=== PATIENT | female | born 1960 | race African-American/Black ===

== ENCOUNTER 2021-05-28 16:06 | Emergency (ER) | payer OTHER ==
[~2021-05-28] VITALS: Ht 157.5 cm; Wt 139.6 kg
[~2021-05-28 16:06] MED LIST: ALBU8.5H8 IH; ALBUTEROL MDI IH; AMLO10TA55 PO; ATEN100T92 PO; BECL8.7A5 IH; BENZ-70 PO; DIPH25CA85 PO; FURO40 PO; GUAI600T30 PO; LOSA25TA21 PO; METF-1211 PO; [UNRECOGNIZED DRUG - OTHER] IH
[2021-05-28] MEDS ORDERED: ACETAMINOPHEN/CODEINE 300-30 MG TABLET PO ONE (17:15)
[2021-05-28 17:29] LABS: BASOPHILS % (AUTO) 0.8 % (0.0-2.0); EOSINOPHILS % (AUTO) 10.1 % (1.0-6.0); HEMATOCRIT 38.6 % (36-46); HEMOGLOBIN 12.5 g/dL (12.0-16.0); LYMPHOCYTES # (AUTO) 1.9 K/uL (1.0-4.8); LYMPHOCYTES % (AUTO) 29.5 % (22.0-44.0); MEAN CORPUSCULAR HEMOGLOBIN 25.2 pg (26.0-34.0); MEAN CORPUSCULAR HGB CONC 32.3 G/dL (31.0-37.0); MEAN CORPUSCULAR VOLUME 78 fL (80-100); MONOCYTES # (AUTO) 0.6 K/uL (0.1-1.0); MONOCYTES % (AUTO) 8.7 % (2.0-9.0); NEUTROPHILS # (AUTO) 3.3 K/uL (1.8-7.7); NEUTROPHILS % (AUTO) 50.9 % (40.0-70.0); PLATELET COUNT (AUTO) 219 K/uL (150-450); RED BLOOD CELL COUNT(AUTO) 4.94 MIL/uL (4.00-5.20); RED CELL DISTRIBUTION WIDTH 15.2 % (11.5-14.5)
[2021-05-28 17:38] LABS: ANION GAP 9 mmol/L (8-16); CALCIUM, TOTAL 10.1 mg/dL (8.8-10.5); CARBON DIOXIDE 31 mmol/L (22-29); CHLORIDE 104 mmol/L (98-107); CREATININE 0.99 mg/dL (0.60-1.30); GLOMERULAR FILTR. RATE CALC > 60 mL/min (>60); GLUCOSE,RANDOM 134 mg/dL (70-110); POTASSIUM 4.3 mmol/L (3.5-5.1); SODIUM SERUM 144 mmol/L (136-145); UREA NITROGEN, BLOOD 13 mg/dL (7-18)
[2021-05-28 17:43] LABS: ALANINE AMINOTRANSFERASE 26 U/L (12-78); ALBUMIN 3.9 g/dL (3.4-5.0); ALKALINE PHOSPHATASE 59 U/L (46-116); ASPARTATE AMINOTRANSFERASE 19 U/L (15-37); BILIRUBIN,TOTAL 0.3 mg/dL (0.1-1.0); TOTAL PROTEIN, SERUM 7.8 g/dL (6.4-8.2)
[2021-05-28 18:08] LABS: B-TYPE NATRIURETIC PEPTIDE 7 pg/mL (0-100)
[2021-05-28] MEDS ORDERED: KETOROLAC TROMETHAMINE 30 MG/ML VIAL IM ONE (19:15)
[2021-05-28 19:38] VITALS: BP 180/86
== END 2021-05-28 19:35 | disposition home or self-care (01) ==
LOC: EMS 16:09
DX: G89.29 Other chronic pain (principal); M25.561 Pain in right knee; M25.562 Pain in left knee; R60.0 Localized edema; I10 Essential (primary) hypertension; E11.9 Type 2 diabetes mellitus without complications; J45.909 Unspecified asthma, uncomplicated; Z79.84 Long term (current) use of oral hypoglycemic drugs; Z79.899 Other long term (current) drug therapy
CPT/HCPCS: 80053; 83880; 85025; 93970; 99284

== ENCOUNTER 2023-02-05 17:12 | Emergency (ER) | payer OTHER, SELFPAY ==
[~2023-02-05] VITALS: Ht 157.5 cm; Wt 123.6 kg
[~2023-02-05 17:12] MED LIST changes: +BENZ-227 PO; -BENZ-70 PO; -GUAI600T30 PO; +GUAI600T31 PO; +LOSA-381 PO; -LOSA25TA21 PO
[2023-02-05 17:18] VITALS: TEMP 98.5
[2023-02-05] MEDS ORDERED: CLON-353 PO (17:22)
[2023-02-05] MEDS ORDERED: FERR325T23 PO (17:22)
[2023-02-05] MEDS ORDERED: NIFE-79 PO (17:22)
[2023-02-05] MEDS ORDERED: SIMV-46 PO (17:22)
[2023-02-05] MEDS ORDERED: HYDR-4069 PO (17:22)
[2023-02-05] MEDS ORDERED: LISI-892 PO (17:22)
[2023-02-05] MEDS ORDERED: ALBU18HF12 PO (17:22)
[2023-02-05] MEDS ORDERED: NIFE10CA50 PO (17:22)
[2023-02-05] MEDS ORDERED: METF-446 PO (17:22)
[2023-02-05 17:31] LABS: GLUCOMETER DEV NAME(LOC) ERT.5; GLUCOSE,POINT OF CARE 140 MG/DL (70-110)
[2023-02-05] MEDS ORDERED: ONDANSETRON HCL 4 MG TABLET PO ONE (18:00)
[2023-02-05] MEDS ORDERED: MECLIZINE HCL 25 MG TABLET PO ONE (18:00)
[2023-02-05 18:55] LABS: APPEARANCE,URINE CLEAR (CLEAR); BILIRUBIN,URINE NEGATIVE (NEGATIVE); COLOR,URINE YELLOW (YELLOW); GLUCOSE, URINE (UA) NEGATIVE (NEGATIVE); KETONES,URINE NEGATIVE (NEGATIVE); LEUKOCYTE ESTERASE ,URINE TRACE (NEGATIVE); NITRATE,URINE NEGATIVE (NEGATIVE); OCCULT BLOOD,URINE NEGATIVE (NEGATIVE); PROTEIN,URINE NEGATIVE (NEGATIVE); SPECIFIC GRAVITIY, URINE 1.028 (1.003-1.030); UROBILINOGEN,URINE <=1.0 mg/dL (<=1.0)
[2023-02-05 19:00] LABS: HEMATOCRIT 36.3 % (36-46); HEMOGLOBIN 11.7 g/dL (12.0-16.0); LYMPHOCYTES # (AUTO) 2.4 K/uL (1.0-4.8); LYMPHOCYTES % (AUTO) 32.1 % (22.0-44.0); MEAN CORPUSCULAR HEMOGLOBIN 24.4 pg (26.0-34.0); MEAN CORPUSCULAR HGB CONC 32.2 G/dL (31.0-37.0); MEAN CORPUSCULAR VOLUME 76 fL (80-100); MONOCYTES # (AUTO) 0.5 K/uL (0.1-1.0); MONOCYTES % (AUTO) 7.2 % (2.0-9.0); NEUTROPHILS # (AUTO) 3.8 K/uL (1.8-7.7); NEUTROPHILS % (AUTO) 51.7 % (40.0-70.0); PLATELET COUNT (AUTO) 205 K/uL (150-450); RED BLOOD CELL COUNT(AUTO) 4.79 MIL/uL (4.00-5.20); RED CELL DISTRIBUTION WIDTH 15.3 % (11.5-14.5); WHITE BLOOD COUNT (AUTO) 7.3 K/uL (4.5-11.0)
[2023-02-05 19:11] LABS: RBC,URINE 0-2 /HPF (0-2)
[2023-02-05 19:12] LABS: BACTERIA,URINE Rare /HPF (None Seen); SQUAMOUS EPITHELIAL CELL,UR Few /LPF (None Seen)
[2023-02-05 19:13] LABS: ANION GAP 9 mmol/L (8-16); CALCIUM, TOTAL 9.3 mg/dL (8.8-10.5); CARBON DIOXIDE 30 mmol/L (22-29); CHLORIDE 102 mmol/L (98-107); CREATININE 0.98 mg/dL (0.60-1.30); GLOMERULAR FILTR. RATE CALC > 60 mL/min (>60); GLUCOSE,RANDOM 147 mg/dL (70-110); POTASSIUM 3.9 mmol/L (3.5-5.1); SODIUM SERUM 141 mmol/L (136-145); UREA NITROGEN, BLOOD 19 mg/dL (7-18)
[2023-02-05 19:16] LABS: B-TYPE NATRIURETIC PEPTIDE 11 pg/mL (0-100)
[2023-02-05 19:21] LABS: TROPONIN I-HIGH SENSITIVITY 7 ng/L (<51)
[2023-02-05 19:22] LABS: ALANINE AMINOTRANSFERASE 21 U/L (12-78); ALBUMIN 3.6 g/dL (3.4-5.0); ALKALINE PHOSPHATASE 69 U/L (46-116); ASPARTATE AMINOTRANSFERASE 18 U/L (15-37); BILIRUBIN,TOTAL 0.2 mg/dL (0.1-1.0); CREATINE KINASE, TOTAL ONLY 131 U/L (26-192)
[2023-02-05] MEDS ORDERED: ONDA-104 PO (19:25)
[2023-02-05] MEDS ORDERED: MECL-160 PO (19:25)
[2023-02-05 19:44] VITALS: BP 129/78; PULSE 92; RESP 19
== END 2023-02-05 19:45 | disposition home or self-care (01) ==
LOC: EMS 17:12
DX: R42 Dizziness and giddiness (principal); J45.909 Unspecified asthma, uncomplicated; E11.9 Type 2 diabetes mellitus without complications; E78.00 Pure hypercholesterolemia, unspecified; I10 Essential (primary) hypertension; G89.29 Other chronic pain; M25.569 Pain in unspecified knee; Z98.890 Other specified postprocedural states
CPT/HCPCS: 99284; 70450; 80053; 81001; 82550; 82962; 83880; 84484; 85025; 36415; 93005; Q0162

== ENCOUNTER 2024-02-04 14:05 | Emergency (ER) | payer MEDICARE, OTHER ==
[~2024-02-04] VITALS: Ht 157.5 cm; Wt 119.1 kg
[~2024-02-04 14:05] MED LIST changes: +ALBU18HF12 PO; -ALBU8.5H8 IH; -ALBUTEROL MDI IH; -AMLO10TA55 PO; -ATEN100T92 PO; -BECL8.7A5 IH; -BENZ-227 PO; +CLON-353 PO; -DIPH25CA85 PO; +FERR325T23 PO; -FURO40 PO; -GUAI600T31 PO; +HYDR-4069 PO; +LISI-892 PO; -LOSA-381 PO; +MECL-302 PO; +METF-446 PO; +NIFE-79 PO; +NIFE10CA50 PO; +ONDA-104 PO; +SIMV-46 PO; -[UNRECOGNIZED DRUG - OTHER] IH
[2024-02-04 14:22] VITALS: BP 151/87; PULSE 86; RESP 18; TEMP 98.2; O2SAT 99
== END 2024-02-04 18:36 | disposition left against medical advice (07) ==
LOC: EMS 14:15
DX: M25.561 Pain in right knee (principal); Z53.21 Procedure and treatment not carried out due to patient leaving prior to being seen by health care provider